=== PATIENT | female | born 1975 ===

== ENCOUNTER 2020-11-10 13:24 | Emergency (ER) | payer OTHER, MEDICAID, SELFPAY ==
[2020-11-10 13:30] VITALS: BP 141/81; PULSE 86; RESP 15; TEMP 36.7; O2SAT 100; BMI 35.2
--- NOTE | 2020-11-10 14:44 | DI.RAD.S_ITS ---
PROCEDURE: XR ACUTE ABDOMEN SERIES INDICATIONS: ruq abd pain/ constipation TECHNIQUE: One view chest and two views of the abdomen were acquired. COMPARISON: None. FINDINGS: Surgical changes and devices: Cholecystectomy clips. Chest: Lungs are clear. Heart size is normal. No pleural effusions. No pneumoperitoneum. Abdomen: Bowel gas pattern is non-specific with mild gaseous distention of a few loops of small bowel and scattered air-fluid levels. No suspicious calcifications. Visualized solid organ contours appear normal. Bones: No suspicious bony lesions. IMPRESSION: 1. Nonspecific bowel gas pattern. If patient's symptoms persist or worsen, consider CT scan of the abdomen/pelvis for further evaluation. 2. No significant stool burden identified. Dictated by: Alyssa Jansen MD, PhD on 11/10/2020 at 15:02 Approved by: Alyssa Jansen MD, PhD on 11/10/2020 at 15:04
[2020-11-10 14:52] LABS: Add Manual Diff / Slide Review NO; Basophils Absolute Auto 100 /uL (0-100); Basophils Percent Auto 0.7 % (0-2); Eosinophils Absolute Auto 0 /uL (0-450); Eosinophils Percent Auto 0.6 % (2-4); Hematocrit 38.2 % (36-46); Lymphocytes Absolute Auto 1100 /uL (1100-4500); Lymphocytes Percent Auto 14.1 % (25-40); Mean Corpuscular Hemoglobin 32.1 PG (26-34); Mean Corpuscular Volume 94.3 fL (80-100); Monocytes Absolute Auto 400 /uL (0-900); Monocytes Percent Auto 5.3 % (3-14); Neutrophils Absolute Auto 6100 /uL (1500-7000); Neutrophils Percent Auto 79.3 % (50-75); Platelet Count 247 X10^3/uL (150-400); Red Blood Cell Count 4.05 X10^6/uL (4.0-5.2); Red Cell Distribution Width 12.6 % (11.6-14.8); White Blood Cell Count 7.7 X10^3/uL (4.5-11.0)
[2020-11-10 14:58] LABS: INR 1.2 (0.9-1.3); Prothrombin Time 13.3 SECONDS (10.1-12.7)
[2020-11-10 15:01] LABS: PTT Partial Thromboplastin Tim 39 SECONDS (26.4-36.2)
[2020-11-10 15:03] LABS: Alanine Aminotransferase 16 IU/L (<35); Albumin 4.3 g/dL (3.5-5.0); Albumin Globulin Ratio 1.3 (1.0-2.8); Alkaline Phosphatase 114 U/L (38-126); Aspartate Aminotransferase 22 IU/L (14-36); BUN Creatinine Ratio 16.9 (6-22); Bilirubin Total 0.3 mg/dL (0.2-1.3); Blood Urea Nitrogen 11 mg/dL (7-17); Calcium 9.4 mg/dL (8.4-10.2); Carbon Dioxide 23 mmol/L (22-32); Chloride 106 mmol/L (98-107); Estimated Glomerular Filt Rate > 60.0 mL/min (>60); Globulin 3.4 g/dL (1.7-4.1); Glucose 106 mg/dL (70-100); HEMOLYSIS < 15 (0-50); Lipase 36 U/L (23-300); Potassium 3.9 mmol/L (3.4-5.1); Sodium 137 mmol/L (137-145); Total Protein 7.7 g/dL (6.3-8.2)
--- NOTE | 2020-11-10 15:42 | ED_ITS ---
HPI - General Adult General Chief complaint: Abdominal Pain Stated complaint: Upper Rt Abd Pain, Constipation Issues for a Wk Time Seen by Provider: 11/10/20 15:41 Source: patient Mode of arrival: Ambulatory Limitations: no limitations History of Present Illness HPI narrative: Patient is a 44-year-old female who has been having abdominal discomfort for the past week that is now seem to localize in her right upper quadrant. Patient states that she also has been having some constipation issues. Had a very small bowel movement last evening but then had some diarrhea this morning. No vomiting. No rashes. She has had her gallbladder removed. No urinary symptoms. Has not tried anything for symptoms prior to arrival. Related Data Allergies Allergy/AdvReac Type Severity Reaction Status Date / Time Sulfa (Sulfonamide Allergy Verified 11/10/20 13:33 Antibiotics) Review of Systems Constitutional Constitutional: Denies fever(s) Cardiovascular Cardiovascular: Denies chest pain and Denies dyspnea Respiratory Respiratory: Denies dyspnea Gastrointestinal Gastrointestinal: Reports system reviewed and no additional complaints, except as documented and Denies vomiting Comments: Small bowel movement last evening with diarrhea this morning Genitourinary Genitourinary: Denies dysuria Genitourinary: Denies abnormal vaginal bleeding and Denies dysuria Musculoskeletal Musculoskeletal: Reports system reviewed and no additional complaints, except as documented Integumentary/Breasts Skin/Breast: Reports system reviewed and no additional complaints, except as documented Neurologic Neurologic: Reports system reviewed and no additional complaints, except as documented Psychiatric Psychiatric: Reports system reviewed and no additional complaints, except as documented Endocrine Endocrine: Reports system reviewed and no additional complaints, except as documented Hematologic/Lymphatic On Anticoagulants: No Allergic/Immunologic Allergic/Immunologic: Reports system reviewed and no additional complaints, except as documented Patient History Medical History Healthy adult Social History Smoking Status: Unknown if ever smoked Smoking Status: Unknown if ever smoked alcohol intake frequency: 3 or more drinks per day Substance Use Type: does not use Exam Initial Vital Signs Initial Vital Signs: Vital Signs Temperature 98.0 F 11/10/20 13:30 Pulse Rate 86 11/10/20 13:30 Respiratory Rate 15 11/10/20 13:30 Blood Pressure 141/81 H 11/10/20 13:30 Pulse Oximetry 100 11/10/20 13:30 Const General: cooperative and healthy appearing Limitations: mental status not altered HENMT Head: normal to inspection and normocephalic Resp Effort & Inspection: normal respiratory effort Auscultation: clear to auscultation bilaterally Cardio Rate: regular rate Rhythm: regular rhythm GI Inspection: non-distended Palpation: soft and tender (Epigastrium and right upper quadrant without guarding) Back/Spine/Pelvis Back: No CVA tenderness Skin Lesions: no lesions Rashes: no rashes Neuro General: patient alert and patient awake Cognition: normal cognition Speech: speech normal Extrem General: normal to inspection and capillary refill normal Psych Appearance: well kempt Course Orders Ordered: ED Orders 11/10/20 13:38 EKG-12 Lead Stat 11/10/20 14:44 XR acute abdomen series Stat 11/10/20 14:45 Complete Blood Count AUTO DIFF Stat Comprehensive Metabolic Panel Stat Lipase Stat Partial Thromboplastin Time Stat Prothrombin Time INR Stat Vital Signs Vital signs: Vital Signs - 8 hr 11/10/20 13:30 Temperature 98.0 F Pulse Rate 86 Respiratory Rate 15 Blood Pressure 141/81 H Pulse Oximetry 100 Medical Decision Making Lab Data Lab results reviewed: Yes I reviewed the patient's lab results. Result diagrams: 11/10/20 14:45 11/10/20 14:45 Labs: Lab Results 11/10/20 11/10/20 11/10/20 Range/Units 14:45 14:45 14:45 WBC 7.7 (4.5-11.0) X10^3/uL RBC 4.05 (4.0-5.2) X10^6/uL Hgb 13.0 (12.0-16.0) g/dL Hct 38.2 (36-46) % MCV 94.3 (80-100) fL MCH 32.1 (26-34) PG MCHC 34.0 (30-36) % RDW 12.6 (11.6-14.8) % Plt Count 247 (150-400) X10^3/uL Neut % (Auto) 79.3 H (50-75) % Lymph % (Auto) 14.1 L (25-40) % [place] % (Auto) 5.3 (3-14) % Eos % (Auto) 0.6 L (2-4) % Baso % (Auto) 0.7 (0-2) % Neut # (Auto) 6100 (2482-4679) /uL Lymph # (Auto) 1100 (1853-1876) /uL Carver # (Auto) 400 (0-900) /uL Eos # (Auto) 0 (0-450) /uL Baso # (Auto) 100 (0-100) /uL PT 13.3 H (10.1-12.7) SECONDS INR 1.2 (0.9-1.3) APTT 39 H (26.4-36.2) SECONDS Sodium 137 (137-145) mmol/L Potassium 3.9 (3.4-5.1) mmol/L Chloride 106 (98-107) mmol/L Carbon Dioxide 23 (22-32) mmol/L BUN 11 (7-17) mg/dL Creatinine 0.65 (0.52-1.04) mg/dL Estimated GFR > 60.0 (>60) mL/min BUN/Creatinine Ratio 16.9 (6-22) Glucose 106 H (70-100) mg/dL Calcium 9.4 (8.4-10.2) mg/dL Total Bilirubin 0.3 (0.2-1.3) mg/dL AST 22 (14-36) IU/L ALT 16 (<35) IU/L Alkaline Phosphatase 114 (38-126) U/L Total Protein 7.7 (6.3-8.2) g/dL Albumin 4.3 (3.5-5.0) g/dL Globulin 3.4 (1.7-4.1) g/dL Albumin/Globulin Ratio 1.3 (1.0-2.8) Lipase 36 (23-300) U/L Urine Dip Bedside Urine Glucose Negative Bedside Urine Bilirubin - Negative Bedside Urine Ketone + 15 Urine Specific [place] 1.025 Bedside Urine Occult Blood + Bedside Urine pH 6.0 Bedside Urine Protein - Negative Bedside Urine Urobilinogen - Negative Bedside Urine Nitrite - Negative Bedside Urine Leukocytes - Negative Esterase Point of care testing: Urine Dip Bedside Urine Glucose Negative Bedside Urine Bilirubin - Negative Bedside Urine Ketone + 15 Urine Specific [place] 1.025 Bedside Urine Occult Blood + Bedside Urine pH 6.0 Bedside Urine Protein - Negative Bedside Urine Urobilinogen - Negative Bedside Urine Nitrite - Negative Bedside Urine Leukocytes - Negative Esterase Imaging Data Abdominal x-ray: Radiologist's Impression: [address] [id number] ReportSigned Patient: Maame Robbins [facility]#: [id number]: 1975Acct:[id number] e/Sex: 44 / FDate of Service: 11/10/20Lo: EDAccession Number: [id number] Procedure: XR acute abdomen series Ordering Provider: Levi Conroy D.O. PROCEDURE: XR ACUTE ABDOMEN SERIES INDICATIONS: ruq abd pain/ constipation TECHNIQUE: One view chest and two views of the abdomen were acquired. COMPARISON: None. FINDINGS: Surgical changes and devices: Cholecystectomy clips. Chest: Lungs are clear. Heart size is normal. No pleural effusions. No pneumoperitoneum. Abdomen: Bowel gas pattern is non-specific with mild gaseous distention of a few loops of small bowel and scattered air-fluid levels. No suspicious calcifications. Visualized solid organ contours appear normal. Bones: No suspicious bony lesions. IMPRESSION: 1. Nonspecific bowel gas pattern. If patient's symptoms persist or worsen, consider CT scan of the abdomen/pelvis for further evaluation. 2. No significant stool burden identified. Dictated by: Alyssa Jansen MD, PhD on 11/10/2020 at 15:02 Approved by: Alyssa Jansen MD, PhD on 11/10/2020 at 15:04 CT scan - abdomen/pelvis: Radiologist's Impression: [address] [id number] Scan ReportSigned Patient: Maame Robbins [facility]#: [id number]: 1975Acct:[id number]/Sex: 44 / FDate of Service: 11/10/20Loc: EDAccession Number: [id number] Procedure: CT abdomen pelvis w con Ordering Provider: Levi Conroy D.O. PROCEDURE: CT ABDOMEN PELVIS W CON INDICATIONS: Generalized abdominal pain TECHNIQUE: After the administration of intravenous contrast, 5 mm thick sections acquired from the diaphragm to the symphysis. 5 mm coronal and sagittal reformats were acquired. For radiation dose reduction, the following was used: automated exposure control, adjustment of mA and/or kV according to patient size. COMPARISON: None. FINDINGS: Image quality: Excellent. ABDOMEN: Lung bases: Lung bases are clear. Heart size is normal. Solid organs: Normal CT appearance of the liver, spleen, pancreas, adrenal glands, and kidneys. No hydronephrosis or hydroureter. Status post cholecystectomy. Mild intrahepatic and extrahepatic biliary ductal dilatation, consistent with post cholecystectomy reservoir phenomenon. Peritoneum and bowel: No abnormally dilated or thickened loop of bowel. No pericolonic or mesenteric inflammatory changes. Normal appearance of the appendix. Nodes and vessels: No threshold enlarged retroperitoneal or intra-abdominal lymph node. The aorta and IVC are within normal limits. Miscellaneous: No ventral hernias. PELVIS: Genitourinary: Normal urinary bladder wall thickness. No free pelvic fluid. Miscellaneous: No threshold enlarged pelvic or inguinal lymph node. No inguinal hernia. Bones: No suspicious lytic or blastic osseous lesion. IMPRESSION: No acute finding to explain symptoms. Dictated by: Misael Montero M.D. on 11/10/2020 at 16:15 Approved by: Misael Montero M.D. on 11/10/2020 at 16:17 ECG Data Attestation: I personally reviewed and interpreted this ECG as follows: Prior ECG tracings: not available for review Interpretation: Sinus rhythm Ventricular rate is 71 Normal axis Normal QRS QTC ST T wave changes MDM Narrative Medical decision making narrative: Patient does have a relatively benign abdominal exam. Her labs are unremarkable. X-rays unremarkable. CT scan was ordered because she was having abdominal discomfort in the area of the gallbladder however she has had her gallbladder removed. Her LFTs and lipase are unremarkable. No definitive etiology was found on the workup today however feel that we can hold on further workup. I do have low suspicion for a intra- abdominal surgical issue. We did discuss the possibility of a stomach ulcer. Plan will be is to treat her with reflux medications for the next 7-10 days to see if this does not improve her treatment and she was informed that if it does not she needed talk with her primary doctor about referral to see Gastroenterology. She expressed understanding and agreement. Discharge Plan Departure Patient Disposition: Home Clinical Impression: Abdominal pain Instructions: DI for Abdominal Pain-Adult Activity Restrictions/Additional Instructions: I recommend that you start on a medication called famotidine/Pepcid. You can purchase this medication [id number]. Recommend taking it on a daily basis for the next week. Contact your primary provider for follow-up. Return to the emergency department for any new or worsening symptoms Referrals: Turner Fraser MD [Primary Care Provider] -
[2020-11-10 16:33] VITALS: BP 122/78; PULSE 70; RESP 12; O2SAT 99
== END 2020-11-10 16:37 | disposition home or self-care (01) ==
PROVIDERS: Emergency Provider Emergency Medicine; PCP Family Medicine
DX: R10.11 Right upper quadrant pain (principal); K59.00 Constipation, unspecified
CPT/HCPCS: 36415; 74022; 74177; 80053; 81003; 83690; 85025; 85610; 85730; 93005; 99283; 99284; Q9967